=== PATIENT | female | born 1960 | race Caucasian/White ===

== ENCOUNTER 2023-02-02 15:39 | Outpatient (CLI) | payer BC ==
--- NOTE | 2023-02-04 15:32 | CT Report ---
PROCEDURE: Low Dose Lung Cancer Screen INDICATIONS: CURRENT SMOKER TECHNIQUE: A CT scan of the chest was performed. Intravenous contrast media was not administered. Images were re corded and evaluated at appropriate window settings. Reformats: axial MIP of the chest, coronal and s agittal. For radiation dose reduction, the following was used: automated exposure control, adjustment of mA and/or kV according to patient size. COMPARISON: 05/29/2015 FINDINGS: Image quality: Excellent. Prior cancer history: Unknown Lungs and pleura: No pleural effusions. No pneumothorax. Mild nodular biapical pleural plaquing. Sev eral small subpleural right apical nodules. Several small pleural-based left upper lobe nodules. Marianna d left lower lobe nodule measuring 0.8 x 0.5 cm, 3/197, previously 0.5 cm. Central and peripheral air ways are normal caliber without bronchial wall thickening or bronchiectasis. Mediastinum: Heart size is normal. No pericardial effusion. No large vessel abnormality. No mediastin al adenopathy by size criteria. Chest wall and lower neck: Bilateral breast implants are present. Thyroid gland is normal. No axillar y or supraclavicular adenopathy by size. Bones: No aggressive osseous abnormality. Upper Abdomen: Unremarkable. IMPRESSION: Lung RAD: 3 - Probably Benign. Recommendation: Follow-up in 6 Months with LDCT Non-Lung Significant Findings: None. Reviewed by: Joy Marie MD on 02/04/2023 3:30 PM PDT Approved by: Joy Marie MD on 02/04/2023 3:30 PM PDT Station ID: [id number]
== END 2023-02-02 15:40 | disposition home or self-care (01) ==
LOC: DI 15:39
PROVIDERS: ATTEND Physician Assistant
DX: Z12.2 Encounter for screening for malignant neoplasm of respiratory organs (principal); F17.210 Nicotine dependence, cigarettes, uncomplicated